=== PATIENT | female | born 1995 ===

== ENCOUNTER → 2019-03-13 | Outpatient (CLI) | payer OTHER | END | disposition left against medical advice (07) | LOC: OBS/DEL 19:21 | DX: O16.3 Unspecified maternal hypertension, third trimester (principal); Z34.02 Encounter for supervision of normal first pregnancy, second trimester ==

== ENCOUNTER 2019-03-14 15:49 | Inpatient (IN) | payer OTHER ==
[~2019-03-14] VITALS: Ht 160 cm; Wt 80.3 kg
== END 2019-03-15 22:12 | disposition home or self-care (01) | DRG 833 ==
LOC: OBS/DEL 15:49 → LDR 16:23
PROVIDERS: ADMIT Specialist
PROC: 4A1HXCZ Monitoring of Products of Conception, Cardiac Rate, External Approach (ICD-10-PCS; principal; 2019-03-14)
DX: O14.03 Mild to moderate pre-eclampsia, third trimester (principal); Z34.03 Encounter for supervision of normal first pregnancy, third trimester

== ENCOUNTER 2019-03-21 06:27 | Inpatient (IN) | payer OTHER ==
[~2019-03-21] VITALS: Ht 167.6 cm; Wt 80.7 kg
[2019-03-21] MEDS ORDERED: PRENATAL TABLE1 EACH PO (08:27)
[2019-03-24] MEDS ORDERED: IBUPROFEN800 MG PO (10:35)
[2019-03-24] MEDS ORDERED: SURFAK240 M1 PO (10:35)
== END 2019-03-24 11:49 | DRG 787 ==
LOC: LDR 06:27 → OB/GYN 06:27
PROVIDERS: ADMIT Specialist
PROC: 4A1HXCZ Monitoring of Products of Conception, Cardiac Rate, External Approach (ICD-10-PCS; 2019-03-21)
PROC: 4A033R1 Measurement of Arterial Saturation, Peripheral, Percutaneous Approach (ICD-10-PCS; 2019-03-21)
PROC: 10D00Z1 Extraction of Products of Conception, Low, Open Approach (ICD-10-PCS; principal; 2019-03-21 19:00)
DX: O62.1 Secondary uterine inertia (principal); O14.03 Mild to moderate pre-eclampsia, third trimester; Z3A.38 38 weeks gestation of pregnancy; Z37.0 Single live birth

== ENCOUNTER 2020-08-17 20:28 | Inpatient (IN) | payer OTHER ==
[~2020-08-17] VITALS: Ht 167.6 cm; Wt 4.1 kg
[~2020-08-17 20:28] MED LIST: IBUPROFEN800 MG PO; PRENATAL TABLE1 EACH PO; SURFAK240 M1 PO
[2020-08-21] MEDS ORDERED: SIMETHICONE125 M1 PO (09:12)
[2020-08-21] MEDS ORDERED: COLACE100 MG PO (09:12)
[2020-08-21] MEDS ORDERED: IBU600 MG PO (09:13)
== END 2020-08-21 13:13 | DRG 788 ==
LOC: O/R 20:28 → LDR 20:28 → OB/GYN 20:28 → O/R 08-18 09:56 → OB/GYN 08-18 11:20
PROVIDERS: ADMIT Obstetrics & Gynecology; ATTEND Obstetrics & Gynecology
PROC: 4A1HXFZ Monitoring of Products of Conception, Cardiac Rhythm, External Approach (ICD-10-PCS; 2020-08-18)
PROC: 10D00Z1 Extraction of Products of Conception, Low, Open Approach (ICD-10-PCS; principal; 2020-08-18 10:00)
DX: O34.211 Maternal care for low transverse scar from previous cesarean delivery (principal); Z3A.39 39 weeks gestation of pregnancy; Z37.0 Single live birth; Z20.822 Contact with and (suspected) exposure to COVID-19